=== PATIENT | male | born 1965 | race Two or more races ===

== ENCOUNTER 2017-11-21 10:11 | Outpatient (CLI) | payer OTHER | END 2017-11-21 17:27 | disposition home or self-care (01) | LOC: TOM 10:11 | DX: N20.0 Calculus of kidney (principal) ==

== ENCOUNTER 2017-11-21 10:25 | Outpatient (CLI) | payer OTHER | END 2017-11-21 16:47 | disposition home or self-care (01) | LOC: RAD 10:25 | DX: N20.0 Calculus of kidney (principal) ==

== ENCOUNTER 2017-11-21 10:38 | Outpatient (CLI) | payer OTHER | END 2017-11-21 17:32 | disposition home or self-care (01) | LOC: LAB 10:38 | DX: N20.0 Calculus of kidney (principal); N40.1 Benign prostatic hyperplasia with lower urinary tract symptoms ==

== ENCOUNTER 2018-03-13 15:31 | Outpatient (CLI) | payer OTHER | END 2018-03-13 17:00 | disposition home or self-care (01) | LOC: RAD 15:31 | DX: N20.0 Calculus of kidney (principal) ==

== ENCOUNTER → 2018-06-10 | Outpatient (CLI) | payer OTHER | END | disposition home or self-care (01) | LOC: RAD 11:19 | DX: N20.0 Calculus of kidney (principal) ==